=== PATIENT | female | born 1945 | race Caucasian/White ===

== ENCOUNTER 2020-01-06 11:10 | Emergency (ER) | payer MEDICARE, BC ==
[2020-01-06] MEDS ORDERED: Sodium Chloride 0.9% 10 ML Syringe FLUSH PRN (11:26)
--- NOTE | 2020-01-06 12:11 | CT ---
Head CT Technique: Multiple axial sections through the brain were obtained. Intravenous contrast was not utilized. Comparison: No prior intracranial imaging. Findings: Ventricles along with basal cisterns and sulci over the convexities appear mildly prominent. Minimal areas of diminished density are seen within the periventricular white matter compatible with small vessel ischemic demyelination change. No evidence of intracranial hemorrhage. No midline shift or mass-effect is seen. Bone window settings were reviewed. Visualized paranasal sinuses show nothing acute. Mastoid sinuses also show nothing acute. Mild atherosclerotic calcification is seen within the carotid siphon. No acute calvarial abnormality is appreciated. Impression: 1. Mild senescent change as noted above. 2. No acute intracranial abnormality is identified. Diagnostic code #2 This report was dictated in MDT
--- NOTE | 2020-01-06 14:03 | EDM.PDOC ---
ED HPI GENERAL MEDICAL PROBLEM - General Chief Complaint: Neuro Symptoms/Deficits Stated Complaint: STROKE SYMPTOMS Time Seen by Provider: 01/06/20 11:22 Source of Information: Reports: Patient History Limitations: Reports: No Limitations - History of Present Illness INITIAL COMMENTS - FREE TEXT/NARRATIVE: The patient presents for neurologic symptoms. She says her last time known well was last night at 7pm. She had some "impulses" to the left side of her head. She took a baby aspirin. She denies having pain. She thought maybe she was a little weak on the left side. She walked in to the room fine and she was not dropping anything. She has no headache, fever, chills, cough, congestion, runny nose, chest pain, shortness of breath, abdominal pain, nausea or vomiting. She has no numbness or weakness now. She has no balance issues. This has never happened before. 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 - Related Data Allergies Allergy/AdvReac Type Severity Reaction Status Date / Time tetracycline Allergy Other Verified 01/06/20 11:17 Home Meds: Home Meds Famotidine [Pepcid] 20 mg PO DAILY 01/06/20 [History] Levothyroxine [Synthroid] 88 mcg PO DAILY 01/06/20 [History] Zolpidem [Ambien] 10 mg PO ASDIRECTED 01/06/20 [History] atorvaSTATin [Lipitor] 10 mg PO MOFR 01/06/20 [History] Past Medical History Cardiovascular History: Reports: High Cholesterol Endocrine/Metabolic History: Reports: Hypothyroidism - Past Surgical History GI Surgical History: Reports: Cholecystectomy Female Surgical History: Reports: Section, Mastectomy Other 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 Social & Family History - Tobacco Use Smoking Status *Q: Never Smoker - Caffeine Use Caffeine Use: Reports: Coffee, Soda - Recreational Drug Use Recreational Drug Use: No ED ROS GENERAL - Review of Systems Review Of Systems: See Below Constitutional: Reports: No Symptoms HEENT: Reports: No Symptoms Respiratory: Reports: No Symptoms Cardiovascular: Reports: No Symptoms Endocrine: Reports: No Symptoms GI/Abdominal: Reports: No Symptoms : Reports: No Symptoms Musculoskeletal: Reports: No Symptoms Skin: Reports: No Symptoms ED EXAM, NEURO - Physical Exam Exam: See Below Exam Limited By: No Limitations General Appearance: Alert, No Apparent Distress Ears: Normal External Exam Nose: Normal Inspection Head Exam: Atraumatic, Normocephalic Neck: Normal Inspection Respiratory/Chest: No Respiratory Distress, Lungs Clear, Normal Breath Sounds Cardiovascular: Regular Rate, Rhythm, No Edema, No Murmur GI/Abdominal: Soft, Non-Tender, No Organomegaly, No Mass Neurological: Alert, Normal Mood/Affect, No Motor/Sensory Deficits, Oriented x 3 EKG INTERPRETATION EKG Date: 01/06/20 Time: 11:28 Rhythm: NSR Rate (Beats/Min): 72 [place]: Normal P-Wave: Present QRS: Normal ST-T: Normal QT: Normal Course - Vital Signs Last Recorded V/S: Last Vital Signs Temp 97.7 F 01/06/20 11:26 Pulse 78 01/06/20 11:26 Resp 20 01/06/20 11:26 BP 157/81 H 01/06/20 11:26 Pulse Ox 97 01/06/20 11:26 - Orders/Labs/Meds Orders: Active Orders 24 hr Category Date Time Status Cardiac Monitoring [RC] . DIRECTED Care 01/06/20 11:26 Active EKG Documentation Completion [RC] STAT Care 01/06/20 11:26 Active Peripheral IV Care [RC] . DIRECTED Care 01/06/20 11:26 Active Sodium Chloride 0.9% [Saline Flush] Med 01/06/20 11:26 Active 10 ml FLUSH ASDIRECTED PRN Peripheral IV Insertion Adult [OM.PC] Stat Oth 01/06/20 11:26 Ordered Medication Orders Sodium Chloride (Saline Flush) 10 ml FLUSH ASDIRECTED PRN PRN Reason: Keep Vein Open Last Admin: 01/06/20 12:05 Dose: 10 ml Labs: Laboratory Tests 01/06/20 01/06/20 01/06/20 Range/Units 11:24 11:48 11:48 WBC 5.22 (3.98-10.04) K/mm3 RBC 4.40 (3.98-5.22) M/mm3 Hgb 13.4 (11.2-15.7) gm/dl Hct 41.4 (34.1-44.9) % MCV 94.1 (79.4-94.8) fl MCH 30.5 (25.6-32.2) pg MCHC 32.4 (32.2-35.5) g/dl RDW Std Deviation 43.8 (36.4-46.3) fL Plt Count 222 (182-369) K/mm3 MPV 9.5 (9.4-12.3) fl Neut % (Auto) 56.6 (34.0-71.1) % Lymph % (Auto) 31.4 (19.3-51.7) % [place] % (Auto) 8.2 (4.7-12.5) % Eos % (Auto) 3.6 (0.7-5.8) Baso % (Auto) 0.2 (0.1-1.2) % Neut # (Auto) 2.95 (1.56-6.13) K/mm3 Lymph # (Auto) 1.64 (1.18-3.74) K/mm3 [place] # (Auto) 0.43 H (0.24-0.36) K/mm3 Eos # (Auto) 0.19 (0.04-0.36) K/mm3 Baso # (Auto) 0.01 (0.01-0.08) K/mm3 Sodium 143 (136-145) mEq/L Potassium 4.4 (3.5-5.1) mEq/L Chloride 109 H (98-107) mEq/L Carbon Dioxide 23 (21-32) mEq/L Anion Gap 15.4 H (5-15) BUN 17 (7-18) mg/dL Creatinine 1.1 H (0.55-1.02) mg/dL Est Cr Clr Drug Dosing 39.92 mL/min Estimated GFR (MDRD) 49 (>60) mL/min BUN/Creatinine Ratio 15.5 (14-18) Glucose 96 (83-115) mg/dL POC Glucose 93 (83-110) mg/dL Calcium 8.5 (8.5-10.1) mg/dL Total Bilirubin 0.4 (0.2-1.0) mg/dL AST 17 (15-37) U/L ALT 23 (14-59) U/L Alkaline Phosphatase 85 (46-116) U/L Troponin I < 0.017 (0.00-0.056) ng/mL Total Protein 6.7 (6.4-8.2) g/dl Albumin 3.4 (3.4-5.0) g/dl Globulin 3.3 gm/dL Albumin/Globulin Ratio 1.0 (1-2) Meds: Medications Generic Name Dose Route Start Last Admin Trade Name Freq PRN Reason Stop Dose Admin Sodium Chloride 10 ml 01/06/20 11:26 01/06/20 12:05 Saline Flush FLUSH 10 ml ASDIRECTED PRN Administration Keep Vein Open - Re-Assessments/Exams Free Text/Narrative Re-Assessment/Exam: 01/06/20 14:03 I ordered an IV saline lock, EKG, CT of her head and labs. Her EKG shows a NSR with no acute changes. The CT of her head shows nothing acute. Her labs look good. She feels good. This does not seem like a stroke or CVA. I will get her on an aspirin daily and have her follow up with Rachael Yang on Saturday. Departure - Departure Time of Disposition: 14:05 Disposition: Home, Self-Care 01 Condition: Good Clinical Impression: Neurologic abnormality - Discharge Information *PRESCRIPTION DRUG MONITORING PROGRAM REVIEWED*: Not Applicable *COPY OF PRESCRIPTION DRUG MONITORING REPORT IN PATIENT PARAMJIT: Not Applicable Referrals: Rachael Yang PA-C [Primary Care Provider] - 3 Days Additional Instructions: Take your medication as prescribed. Take aspirin daily. Follow up with Dr Yang on Saturday at noon. Please come early at 11:30 to check in. Please return if you are worse. Sepsis Event Note - Evaluation Sepsis Screening Result: No Definite Risk - Focused Exam Vital Signs: Vital Signs Temp Pulse Resp BP Pulse Ox 01/06/20 11:26 97.7 F 78 20 157/81 H 97 Date Exam was Performed: 01/06/20 Time Exam was Performed: 13:58 - My Orders Last 24 Hours: My Active Orders 01/06/20 11:26 Cardiac Monitoring [RC] . DIRECTED EKG Documentation Completion [RC] STAT Peripheral IV Care [RC] . DIRECTED Sodium Chloride 0.9% [Saline Flush] 10 ml FLUSH ASDIRECTED PRN Peripheral IV Insertion Adult [OM.PC] Stat - Assessment/Plan Last 24 Hours: My Active Orders 01/06/20 11:26 Cardiac Monitoring [RC] . DIRECTED EKG Documentation Completion [RC] STAT Peripheral IV Care [RC] . DIRECTED Sodium Chloride 0.9% [Saline Flush] 10 ml FLUSH ASDIRECTED PRN Peripheral IV Insertion Adult [OM.PC] Stat
== END 2020-01-06 14:43 | disposition home or self-care (01) ==
LOC: JD.ED 11:10
DX: R29.90 Unspecified symptoms and signs involving the nervous system (principal); E78.00 Pure hypercholesterolemia, unspecified; E03.9 Hypothyroidism, unspecified; Z79.899 Other long term (current) drug therapy; Z88.1 Allergy status to other antibiotic agents
CPT/HCPCS: 36415; 70450; 70450-26; 80053; 82962; 84484; 85025; 93005; 93010; 99284; 99284-25

== ENCOUNTER 2020-12-27 06:55 | Day surgery (SDC) | payer MEDICARE, BC ==
[2020-12-27] MEDS ORDERED: Lidocaine 1%/Sod Bicarbonate in NS 8.4% 1 ML Syringe IDERM PRN (07:00)
[2020-12-27] MEDS ORDERED: Lactated Ringers 1,000 ML IV SCH (07:00)
[2020-12-27] MEDS ORDERED: Sodium Chloride 0.9% 10 ML Syringe FLUSH PRN (07:00)
--- NOTE | 2020-12-27 07:38 | PCM.PREANE ---
Preanesthetic Assessment - Procedure Proposed Procedure: EGD and Colonoscopy - Anesthesia/Transfusion/Family Hx Anesthesia History: Prior Anesthesia Without Reaction - Review of Systems General: No Symptoms Pulmonary: No Symptoms Cardiovascular: No Symptoms Gastrointestinal: No Symptoms Neurological: No Symptoms Other: Reports: None - Physical Assessment NPO Status Date: 12/26/20 NPO Status Time: 22:00 Vital Signs: Last Vital Signs Temp 98.8 F 12/27/20 06:55 Pulse 70 12/27/20 06:55 Resp 17 12/27/20 06:55 BP 137/61 12/27/20 06:55 Pulse Ox 95 12/27/20 06:55 Height: 1.63 m Weight: 69.2 kg ASA Class: 2 Mental Status: Alert & Oriented x3 Airway Class: Mallampati = 1 Dentition: Reports: Normal Dentition, [place](s) Thyro-Mental Finger Breadths: 3 Mouth Opening Finger Breadths: 3 ROM/Head Extension: Full Lungs: Clear to Auscultation, Normal Respiratory Effort Cardiovascular: Regular Rate, Regular Rhythm - Allergies Allergies/Adverse Reactions: Allergies Allergy/AdvReac Type Severity Reaction Status Date / Time tetracycline Allergy Other Verified 12/27/20 07:24 - Acknowledgements Anesthesia Type Planned: MAC Pt an Appropriate Candidate for the Planned Anesthesia: Yes Alternatives and Risks of Anesthesia Discussed w Pt/Guardian: Yes Pt/Guardian Understands and Agrees with Anesthesia Plan: Yes PreAnesthesia Questionnaire HEENT History: Reports: Allergic Rhinitis, Sinusitis, Other (See Below) Other HEENT History: facial tingling, sinus congestion Cardiovascular History: Reports: High Cholesterol Respiratory History: Reports: Other (See Below) Other Respiratory History: cough, acute bronchitis Gastrointestinal History: Reports: GERD, Hiatal Hernia, Irritable Bowel Syndrome, Other (See Below) Other Gastrointestinal History: chronic epigstric pain, gastric polyp Genitourinary History: Reports: None Musculoskeletal History: Reports: Arthritis, Back Pain, Chronic, Gout, Neck P ain, Chronic Neurological History: Reports: Vertigo Psychiatric History: Reports: Other (See Below) Other Psychiatric History: insomnia Endocrine/Metabolic History: Reports: Hypothyroidism Immunologic History: Reports: None Oncologic (Cancer) History: Reports: Breast Dermatologic History: Reports: Other (See Below) Other Dermatologic History: rash, skin neoplasm - Infectious Disease History Infectious Disease History: Reports: None - Past Surgical History Head Surgeries/Procedures: Reports: None HEENT Surgical History: Reports: Cataract Surgery, Tonsillectomy Cardiovascular Surgical History: Reports: None Respiratory Surgical History: Reports: None GI Surgical History: Reports: Cholecystectomy Female Surgical History: Reports: Section, Mastectomy Other Female Surgeries/Procedures: 1999-double with cancer Endocrine Surgical History: Reports: None Neurological Surgical History: Reports: None Musculoskeletal Surgical History: Reports: None Oncologic Surgical History: Reports: Mastectomy Dermatological Surgical History: Reports: None - SUBSTANCE USE Tobacco Use Status *Q: Never Tobacco User Days Per Week of Alcohol Use: 2 Number of Drinks Per Day: 1 Total Drinks Per Week: 2 Recreational Drug Use History: No - HOME MEDS Home Medications: Home Meds Famotidine [Pepcid] 20 mg PO DAILY 01/06/20 [History] Levothyroxine [Synthroid] 88 mcg PO DAILY 01/06/20 [History] Zolpidem [Ambien] 10 mg PO BEDTIME PRN 01/06/20 [History] atorvaSTATin [Lipitor] 10 mg PO MOFR 01/06/20 [History] Aspirin 81 mg PO DAILY 12/26/20 [History] Cetirizine [ZyrTEC] 10 mg PO DAILY PRN 12/26/20 [History] Famotidine [Pepcid] 40 mg PO DAILY 12/26/20 [History] Fluticasone Propionate [Flonase] 1 dose NASBOTH DAILY 12/26/20 [History] Lactobacillus Acidophilus [Probiotic] 1 cap PO DAILY 12/26/20 [History] Nystatin [Nystatin Crm] 1 dose TOP ASDIRECTED PRN 12/26/20 [History] Triamcinolone Acetonide [Triamcinolone Acetonide 0.1% Crm] 1 dose TOP ASDIRECTED PRN 12/26/20 [History] tiZANidine [Zanaflex] 8 mg PO BEDTIME PRN 12/26/20 [History] - CURRENT (IN HOUSE) MEDS Current Meds: Current Medications Lactated Ringer's (Ringers, Lactated) 1,000 mls @ 125 mls/hr IV ASDIRECTED LAYO Stop: 12/27/20 23:00 Last Admin: 12/27/20 07:10 Dose: 125 mls/hr Documented by: Lidocaine/Sodium Bicarbonate (Lidocaine 1%/Sod Bicarbonate In Ns 8.4% 1 Ml Syringe) 0.25 ml IDERM ONETIME PRN PRN Reason: Prior to IV Start Stop: 12/27/20 18:00 Last Admin: 12/27/20 07:10 Dose: 0.25 ml Documented by: Sodium Chloride (Sodium Chloride 0.9% 10 Ml Syringe) 10 ml FLUSH ASDIRECTED PRN PRN Reason: Keep Vein Open Stop: 12/27/20 18:00
[2020-12-27] MEDS ORDERED: Propofol 200 MG/20 ML SDV ONE (07:48)
[2020-12-27] MEDS ORDERED: Lidocaine 1% 4 ML ONE (07:49)
[2020-12-27] MEDS ORDERED: fentaNYL 100 MCG/2 ML SDV ONE (07:49)
--- NOTE | 2020-12-27 08:59 | PCM.PRNOTE ---
- Free Text/Narrative Note: Date: 12/27/2020 Procedure(s): diagnostic esophagogastroduodenoscopy, screening colonoscopy Relevant history: small hiatal hernia and longstanding GERD, sessile serrated adenoma removed in 2018 Endoscopist: Shahzad Hernadez MD Findings: small sliding hiatal hernia with apparent mild gross inflammatory change of the distal esophagus. Fair prep; no polyps identified. Detailed Report: The patient was taken to the endoscopy suite and placed in left lateral decubitus position. Timeout was performed and monitored anesthesia care was initiated. A bite-block was placed. The endoscope was inserted into the mouth and advanced to the second portion of the duodenum. Duodenal mucosa appeared normal. The gastric mucosa appeared normal, there was no evidence of ulceration or inflammation. On retroflexion, a sliding hiatal hernia was appreciated measuring a few centimeters in length. Air was suctioned from the stomach and the scope was withdrawn into the distal esophagus. The Z-line appeared relatively normal, with some mild inflammatory changes noted of the distal esophagus. There is no gross metaplastic change appreciated. Biopsies were obtained of the GE junction and the distal esophageal mucosa. The remainder of the esophagus appeared normal. The vocal cords appeared normal. The scope was withdrawn and attention was then turned to colonoscopy. The anus appeared normal, and digital rectal exam was unremarkable. The colonoscope was inserted and advanced all the way to the cecum. The appendiceal orifice and ileocecal valve were visualized. Prep was fair, with some bubbles and a moderate amount of particulate matter within luminal fluid. The scope was slowly withdrawn and mucosal surfaces carefully inspected. No polyps were identified. There was minor scattered diverticular disease of the sigmoid colon. No abnormalities in the rectum were noted. On retroflexion, no hemorrhoidal disease was appreciated. Air was suctioned from the rectum prior to withdrawal of the scope. The patient tolerated the procedure well.
--- NOTE | 2020-12-27 10:32 | PCM48HPAN ---
Post Anesthesia Note - EVALUATION WITHIN 48HRS OF ANESTHETIC Vital Signs in Normal Range: Yes Patient Participated in Evaluation: Yes Respiratory Function Stable: Yes Airway Patent: Yes Cardiovascular Function Stable: Yes Hydration Status Stable: Yes Pain Control Satisfactory: Yes Nausea and Vomiting Control Satisfactory: Yes Mental Status Recovered: Yes Vital Signs: Last Vital Signs Temp 97.0 F 12/27/20 09:45 Pulse 60 12/27/20 09:45 Resp 16 12/27/20 09:45 BP 129/62 12/27/20 09:45 Pulse Ox 100 12/27/20 09:45 - COMMENTS/OBSERVATIONS Free Text/Narrative:: preparing for discharge
== END 2020-12-27 10:00 | disposition home or self-care (01) ==
LOC: JD.SDS 06:55
PROVIDERS: ATTEND Surgery
DX: Z12.11 Encounter for screening for malignant neoplasm of colon (principal); K57.30 Diverticulosis of large intestine without perforation or abscess without bleeding; K31.89 Other diseases of stomach and duodenum; K29.50 Unspecified chronic gastritis without bleeding; K20.0 Eosinophilic esophagitis; K21.9 Gastro-esophageal reflux disease without esophagitis; K44.9 Diaphragmatic hernia without obstruction or gangrene; Z86.010 Personal history of colon polyps; E03.9 Hypothyroidism, unspecified; E78.2 Mixed hyperlipidemia; Z88.8 Allergy status to other drugs, medicaments and biological substances; Z79.82 Long term (current) use of aspirin; Z79.899 Other long term (current) drug therapy; Z98.890 Other specified postprocedural states
CPT/HCPCS: 00813; 43239; 88305; 99100; G0105; J2704; J3010; J7120